=== PATIENT | female | born 1970 | race Caucasian/White ===

== ENCOUNTER 2020-02-11 20:16 | Emergency (ER) | payer MEDICAID ==
[~2020-02-11] VITALS: Ht 160 cm; Wt 75.0 kg
[2020-02-11 23:24] LABS: BASOPHILS % 0.6 % (0.0-2.0); HEMATOCRIT. 41.1 % (36.0-48.0); HEMOGLOBIN. 14.2 g/dL (12.0-16.0); LYMPHOCYTES % 19.4 % (20.0-50.0); MEAN CORPUSCULAR VOLUME 95.5 fL (81.0-99.0); MEAN PLATELET VOLUME 7.8 fl (7.4-10.4); MONOCYTES % 7.5 % (2.0-8.0); NEUTROPHILS % 71.5 % (40.0-76.0); PLATELET 271 x1000/uL (130-400); RED CELL DISTRIBUTION WIDTH 12.9 % (11.6-14.6)
[2020-02-11 23:31] LABS: CHLORIDE 107 mEq/L (98-107)
[2020-02-11 23:34] LABS: PROTHROMBIN TIME 10.3 sec (9.6-11.0)
[2020-02-11 23:46] LABS: HCG SCREEN NEGATIVE
[2020-02-12] MEDS: SODIUM CHLORIDE 0.9% 500 ML IV ONE (00:03)
[2020-02-12] MEDS: ONDANSETRON HCL 4MG/2ML INJ IV STA (00:03)
[2020-02-12] MEDS: MORPHINE SULFATE 4 MG/ML CPJ (NOT FOR IM USE) IV STA (00:04)
[2020-02-12] MEDS ORDERED: IOHEXOL-300 100 ML BOTTLE ONE (00:28)
[2020-02-12] MEDS: MORPHINE SULFATE 4 MG/ML CPJ (NOT FOR IM USE) IV ONE (01:55)
[2020-02-12] MEDS: ONDANSETRON HCL 4MG/2ML INJ IV ONE (01:56)
[2020-02-12] MEDS: HYDROCODONE/ACETAMINOPHEN 5/325MG TABLET PO ONE (04:45)
[2020-02-12 06:02] VITALS: BP 112/67
== END 2020-02-12 06:08 | disposition home or self-care (01) ==
LOC: ER 20:16
DX: S40.011A Contusion of right shoulder, initial encounter (principal); S20.219A Contusion of unspecified front wall of thorax, initial encounter; S09.8XXA Other specified injuries of head, initial encounter; S30.1XXA Contusion of abdominal wall, initial encounter; S16.1XXA Strain of muscle, fascia and tendon at neck level, initial encounter; V49.59XA Passenger injured in collision with other motor vehicles in traffic accident, initial encounter; Y93.89 Activity, other specified; Y92.488 Other paved roadways as the place of occurrence of the external cause; N28.89 Other specified disorders of kidney and ureter; E04.1 Nontoxic single thyroid nodule; I10 Essential (primary) hypertension
CPT/HCPCS: 36415; 70450; 70491; 71260; 72125; 73030; 74160; 80053; 81025; 83690; 84703; 85025; 85610; 96361; 96374; 96375; 96376; 99285; J2270; J2405; J7030; Q9967; Z7610